=== PATIENT | female | born 1940 | race Caucasian/White ===

== ENCOUNTER → 2016-11-15 | Outpatient (CLI) | payer MEDICARE ==
[~2016-11-15] MED LIST: CELEXA20 MG PO; FEMARA2.5 MG PO; OMEPRAZOLE20 MG PO; QUINAPRIL20 MG PO; VITAMIN D2000 IU PO
[2016-11-15 10:26] LABS: BASO % 0.3 % (0.0-1.0); EOS % 0.3 % (1.0-4.0); HEMATOCRIT 38.4 % (37.0-47.0); HEMOGLOBIN 12.3 g/dl (12.0-16.0); IG # 0.1 10*3/uL (0.0-0.1); LYMPH # 2.2 10*3/uL (1.3-4.4); LYMPH % 36.4 % (27.0-41.0); MEAN CELL VOLUME 90.4 fl (81.0-99.0); MEAN CORPUSCULAR HGB 28.9 pg (27.0-31.0); MONO # 0.5 10*3/uL (0.1-1.0); NEUT # 3.2 10*3/uL (2.3-7.9); NEUT % 54.2 % (47.0-73.0); PLATELET COUNT AUTOMATED 182 10*3/uL (130-400); RED BLOOD COUNT 4.25 10*6/uL (4.10-5.10); RED CELL DISTRI WIDTH 14.8 % (0-14.5)
[2016-11-15 10:59] LABS: IRON 65 ug/dL (50-170); IRON SATURATION 21 %; UIBC 234 ug/dL (110-365)
[2016-11-15 11:24] LABS: FERRITIN 146.5 ng/mL (10.0-291.0); FOLIC ACID 9.98 ng/mL (>5.38)
== END | disposition home or self-care (01) ==
LOC: LAB 10:01
PROVIDERS: Internal Medicine
DX: D64.9 Anemia, unspecified (principal)

== ENCOUNTER → 2017-01-23 | Outpatient (CLI) | payer MEDICARE, OTHER | END | disposition home or self-care (01) | LOC: MAMMO 01-18 10:30 | DX: C50.919 Malignant neoplasm of unspecified site of unspecified female breast (principal); R92.8 Other abnormal and inconclusive findings on diagnostic imaging of breast ==

== ENCOUNTER → 2018-09-06 | Outpatient (CLI) | payer MEDICARE, OTHER ==
[~2018-09-06] MED LIST changes: +ASPIRIN81 M1 PO; +GOOD SENSE ACID20 MG PO; +VITAMIN B121000 MC1 PO
== END | disposition home or self-care (01) ==
LOC: MAMMO 08:34
DX: N64.4 Mastodynia (principal); Z85.3 Personal history of malignant neoplasm of breast

== ENCOUNTER 2020-10-19 12:20 | Emergency (ER) | payer MEDICARE ==
[~2020-10-19] VITALS: Ht 152.4 cm; Wt 88.5 kg
[2020-10-19 13:26] LABS: BASO % 0.6 % (0.0-1.0); EOS # 0.1 10*3/uL (0.0-0.4); EOS % 2.8 % (1.0-4.0); HEMATOCRIT 39.5 % (37.0-47.0); LYMPH # 1.8 10*3/uL (1.3-4.4); LYMPH % 34.9 % (27.0-41.0); MEAN CELL VOLUME 87.8 fl (81.0-99.0); MEAN CORPUSCULAR HGB CONC 31.9 g/dl (33.0-37.0); MEAN PLATELET VOLUME 10.2 fl (9.6-12.3); MONO # 0.5 10*3/uL (0.1-1.0); MONO % 9.9 % (3.0-9.0); NEUT # 2.6 10*3/uL (2.3-7.9); NEUT % 51.6 % (47.0-73.0); PLATELET COUNT AUTOMATED 178 10*3/uL (130-400); RED CELL DISTRI WIDTH 13.2 % (0-14.5)
[2020-10-19 13:44] LABS: ALBUMIN 3.5 gm/dl (3.1-4.5); ALKALINE PHOSPHATASE 74 U/L (45-117); BUN 16 mg/dl (7-24); CHLORIDE 111 mmol/L (98-107); CREATININE 1.16 mg/dL (0.55-1.02); LIPASE 155 U/L (73-393); SGOT/AST 40 IU/L (3-35); SGPT/ALT 37 U/L (12-78); SODIUM 140 mmol/L (136-145); TOTAL PROTEIN 7.7 gm/dL (6.4-8.2)
[2020-10-19 13:46] LABS: TROPONIN I < 0.015 ng/ml (<0.045)
[2020-10-19 13:50] LABS: FREE T4 0.99 ng/dl (0.76-1.46)
== END 2020-10-19 16:27 | disposition home or self-care (01) ==
LOC: ED 12:20
PROVIDERS: Physician Assistant
DX: R53.1 Weakness (principal); R25.1 Tremor, unspecified; R42 Dizziness and giddiness; R53.83 Other fatigue; I10 Essential (primary) hypertension; E78.5 Hyperlipidemia, unspecified; Z85.3 Personal history of malignant neoplasm of breast; Z88.2 Allergy status to sulfonamides; Z79.899 Other long term (current) drug therapy; Z79.82 Long term (current) use of aspirin; Z98.51 Tubal ligation status; Z85.828 Personal history of other malignant neoplasm of skin

== ENCOUNTER 2022-08-24 14:39 | Emergency (ER) | payer MEDICARE ==
[~2022-08-24] VITALS: Wt 89.8 kg
[2022-08-24 17:44] LABS: BASO % 0.4 % (0.0-1.0); EOS # 0.2 10*3/uL (0.0-0.4); EOS % 3.2 % (1.0-4.0); LYMPH # 1.8 10*3/uL (1.3-4.4); LYMPH % 34.2 % (27.0-41.0); MEAN CELL VOLUME 88.5 fl (81.0-99.0); MEAN CORPUSCULAR HGB 27.7 pg (27.0-31.0); MEAN CORPUSCULAR HGB CONC 31.3 g/dl (33.0-37.0); MEAN PLATELET VOLUME 10.2 fl (9.6-12.3); MONO # 0.3 10*3/uL (0.1-1.0); MONO % 6.2 % (3.0-9.0); NEUT # 2.9 10*3/uL (2.3-7.9); NEUT % 55.4 % (47.0-73.0); PLATELET COUNT AUTOMATED 193 10*3/uL (130-400); RED BLOOD COUNT 4.52 10*6/uL (4.10-5.10); RED CELL DISTRI WIDTH 13.3 % (0-14.5); WHITE BLOOD COUNT 5.3 10*3/uL (4.8-10.8)
[2022-08-24 18:06] LABS: POTASSIUM 4.4 mmol/L (3.4-5.1); TOTAL PROTEIN 7.3 gm/dL (6.0-8.0)
[2022-08-24 18:46] LABS: ACT PARTIAL THROMBO TIME 28.2 SECONDS (20.0-32.1)
[2022-08-24] MEDS ORDERED: MECLIZINE HCL25 M2 PO (21:16)
== END 2022-08-24 21:32 | disposition home or self-care (01) ==
LOC: ED 14:39
PROVIDERS: Emergency Medicine; Physician Assistant
DX: H81.10 Benign paroxysmal vertigo, unspecified ear (principal); K21.9 Gastro-esophageal reflux disease without esophagitis; I10 Essential (primary) hypertension; I48.91 Unspecified atrial fibrillation; E78.5 Hyperlipidemia, unspecified; Z90.12 Acquired absence of left breast and nipple; Z98.49 Cataract extraction status, unspecified eye; Z88.2 Allergy status to sulfonamides; Z98.51 Tubal ligation status

== ENCOUNTER 2023-01-15 08:16 | Emergency (ER) | payer MEDICARE ==
[~2023-01-15] VITALS: Ht 152.4 cm; Wt 86.2 kg
[~2023-01-15 08:16] MED LIST changes: +MECLIZINE HCL25 M2 PO
[2023-01-15] MEDS ORDERED: TRAMADOL HCL50 MG PO (08:37)
[2023-01-15] MEDS ORDERED: WALKER (09:36)
== END 2023-01-15 09:41 | disposition home or self-care (01) ==
LOC: ED 08:16
DX: M25.561 Pain in right knee (principal); K21.9 Gastro-esophageal reflux disease without esophagitis; I10 Essential (primary) hypertension; M19.90 Unspecified osteoarthritis, unspecified site; E78.5 Hyperlipidemia, unspecified; Z88.2 Allergy status to sulfonamides; Z98.51 Tubal ligation status; Z90.12 Acquired absence of left breast and nipple; Z98.890 Other specified postprocedural states; Z98.49 Cataract extraction status, unspecified eye

== ENCOUNTER 2023-05-31 13:25 | Emergency (ER) | payer MEDICARE, OTHER ==
[~2023-05-31] VITALS: Ht 162.5 cm; Wt 821.0 kg
[~2023-05-31 13:25] MED LIST changes: +ENALAPRIL20 MG PO; +NEURONTIN100 MG PO; +OMEPRAZOLE40 MG PO; +TOPROL XL25 MG PO; +TRAMADOL HCL50 MG PO; +WALKER
[2023-05-31 14:18] LABS: BASO % 0.4 % (0.0-1.0); EOS # 0.1 10*3/uL (0.0-0.4); EOS % 2.2 % (1.0-4.0); HEMATOCRIT 37.9 % (37.0-47.0); LYMPH # 1.7 10*3/uL (1.3-4.4); LYMPH % 37.7 % (27.0-41.0); MEAN CELL VOLUME 88.8 fl (81.0-99.0); MEAN CORPUSCULAR HGB 27.6 pg (27.0-31.0); MEAN CORPUSCULAR HGB CONC 31.1 g/dl (33.0-37.0); MEAN PLATELET VOLUME 9.9 fl (9.6-12.3); MONO # 0.4 10*3/uL (0.1-1.0); MONO % 8.1 % (3.0-9.0); NEUT # 2.4 10*3/uL (2.3-7.9); NEUT % 51.4 % (47.0-73.0); PLATELET COUNT AUTOMATED 152 10*3/uL (130-400); RED BLOOD COUNT 4.27 10*6/uL (4.10-5.10); RED CELL DISTRI WIDTH 14.4 % (0-14.5); WHITE BLOOD COUNT 4.6 10*3/uL (4.8-10.8)
[2023-05-31 14:41] LABS: ALKALINE PHOSPHATASE 64 U/L (46-116); BUN 11 mg/dl (9-23); CHLORIDE 109 mmol/L (98-107); POTASSIUM 3.6 mmol/L (3.4-5.1); SGPT/ALT 21 U/L (5-49); TOTAL PROTEIN 6.9 gm/dL (6.0-8.0)
[2023-05-31 15:34] LABS: BILIRUBIN Negative (Negative); BLOOD Negative (Negative); CLARITY Clear (Clear); COLOR Yellow (Yellow); GLUCOSE Negative (Negative); KETONE Negative (Negative); LEUKO ESTERASE Negative (Negative); NITRITE Negative (Negative); PH 5.5 (4.5-8.0); SPECIFIC GRAVITY 1.015 (1.001-1.030); UROBILINOGEN 0.2 E.U./dl (0.0-1.0)
[2023-05-31 15:44] LABS: WBC 0-2 wbc/hpf (0-5)
== END 2023-05-31 16:46 | disposition home or self-care (01) ==
LOC: ED 13:25
PROVIDERS: Physician Assistant Medical
DX: I49.8 Other specified cardiac arrhythmias (principal); R00.2 Palpitations; I10 Essential (primary) hypertension; F32.A Depression, unspecified; K21.9 Gastro-esophageal reflux disease without esophagitis; M19.90 Unspecified osteoarthritis, unspecified site; E78.5 Hyperlipidemia, unspecified; Z88.2 Allergy status to sulfonamides; Z98.890 Other specified postprocedural states; Z90.12 Acquired absence of left breast and nipple; Z98.51 Tubal ligation status

== ENCOUNTER → 2023-11-21 | Outpatient (CLI) | payer MEDICARE, OTHER ==
[2023-11-23 15:11] LABS: STRIATIONAL ANTIBODIES Negative (Neg:<1:100)
== END ==
LOC: LAB 10:58
PROVIDERS: ATTEND Psychiatry & Neurology Neurology
DX: H53.2 Diplopia (principal)

== ENCOUNTER → 2024-05-20 | Outpatient (CLI) | payer MEDICARE, OTHER ==
[2024-05-20 17:07] LABS: BASO % 0.4 % (0.0-1.0); EOS # 0.2 10*3/uL (0.0-0.4); EOS % 2.8 % (1.0-4.0); HEMATOCRIT 39.2 % (37.0-47.0); MEAN CELL VOLUME 90.5 fl (81.0-99.0); MEAN CORPUSCULAR HGB 28.9 pg (27.0-31.0); MEAN CORPUSCULAR HGB CONC 31.9 g/dl (33.0-37.0); MEAN PLATELET VOLUME 9.8 fl (9.6-12.3); MONO # 0.6 10*3/uL (0.1-1.0); MONO % 8.3 % (3.0-9.0); NEUT # 3.1 10*3/uL (2.3-7.9); NEUT % 45.8 % (47.0-73.0); PLATELET COUNT AUTOMATED 187 10*3/uL (130-400); RED BLOOD COUNT 4.33 10*6/uL (4.10-5.10); RED CELL DISTRI WIDTH 13.7 % (0-14.5); WHITE BLOOD COUNT 6.8 10*3/uL (4.8-10.8)
[2024-05-20 17:40] LABS: POTASSIUM 3.7 mmol/L (3.4-5.1); TOTAL PROTEIN 7.2 gm/dL (6.0-8.0)
== END | disposition home or self-care (01) ==
LOC: LAB 16:50
PROVIDERS: ATTEND Nurse Practitioner
DX: R63.4 Abnormal weight loss (principal); R11.0 Nausea; K59.00 Constipation, unspecified; F12.90 Cannabis use, unspecified, uncomplicated

== ENCOUNTER 2024-07-02 08:31 | Inpatient (IN) | payer MEDICARE, OTHER ==
[~2024-07-02] VITALS: Ht 152.4 cm; Wt 83.6 kg
[2024-07-02] MEDS ORDERED: Acetaminophen/Oxycodone 5 MG/325 MG TABLET PO ONE (08:35)
[2024-07-02 08:41] VITALS: BP 162/91
[2024-07-02] MEDS ORDERED: PANTOPRAZOLE SO40 MG PO (08:59)
[2024-07-02] MEDS ORDERED: ELIQUIS5 M1 PO (08:59)
[2024-07-02] MEDS ORDERED: ALLOPURINOL100 MG PO (09:00)
[2024-07-02] MEDS ORDERED: LOSARTAN POTASS25 M1 PO (09:00)
[2024-07-02] MEDS ORDERED: METOPROLOL SUCC50 M1 PO (09:01)
[2024-07-02] MEDS ORDERED: Acetaminophen/Hydrocodone 5 MG/325 MG TABLET PO PRN (11:00)
[2024-07-02] MEDS ORDERED: BISACODYL 10 MG SUPP R PRN (11:00)
[2024-07-02] MEDS ORDERED: BISACODYL 5 MG TAB PO PRN (11:00)
[2024-07-02] MEDS ORDERED: ACETAMINOPHEN 325 MG TAB PO PRN (11:00)
[2024-07-02] MEDS ORDERED: Magnesium Hydroxide 30 ML UDC PO PRN (11:00)
[2024-07-02] MEDS ORDERED: Ondansetron Hydrochloride 4 MG/2 ML VIAL IV PRN (11:00)
[2024-07-02] MEDS ORDERED: MORPHINE Sulfate 2 MG/ML SYR IV PRN (11:00)
[2024-07-02] MEDS ORDERED: TEMAZEPAM 15 MG CAP PO PRN (11:00)
[2024-07-02] MEDS ORDERED: ACETAMINOPHEN 650 MG SUPP R PRN (11:00)
[2024-07-02 11:32] VITALS: BP 148/62
[2024-07-02 11:59] LABS: BASO % 0.1 % (0.0-1.0); EOS % 0.3 % (1.0-4.0); HEMATOCRIT 37.6 % (37.0-47.0); MEAN CELL VOLUME 89.5 fl (81.0-99.0); MEAN CORPUSCULAR HGB 28.8 pg (27.0-31.0); MEAN CORPUSCULAR HGB CONC 32.2 g/dl (33.0-37.0); MEAN PLATELET VOLUME 10.6 fl (9.6-12.3); MONO # 0.9 10*3/uL (0.1-1.0); MONO % 11.6 % (3.0-9.0); NEUT # 5.4 10*3/uL (2.3-7.9); NEUT % 67.6 % (47.0-73.0); PLATELET COUNT AUTOMATED 146 10*3/uL (130-400); RED CELL DISTRI WIDTH 13.2 % (0-14.5)
[2024-07-02 12:09] LABS: ACT PARTIAL THROMBO TIME 35.5 SECONDS (20.0-32.1)
[2024-07-02 12:30] VITALS: BP 131/58
[2024-07-02 12:34] LABS: FREE T4 1.27 ng/dl (0.89-1.76); POTASSIUM 3.8 mmol/L (3.4-5.1); TOTAL PROTEIN 6.9 gm/dL (6.0-8.0)
[2024-07-02 13:10] LABS: VITAMIN D, 25-HYDROXY 31.3 ng/mL (30-100)
[2024-07-02 16:00] VITALS: BP 141/53
[2024-07-02] MEDS ORDERED: APIXABAN 5 MG TAB PO SCH (18:00)
[2024-07-02 20:00] VITALS: BP 131/61
[2024-07-03] VITALS: BP 105/65
[2024-07-03] MEDS ORDERED: Pantoprazole Sodium 40 MG TAB PO SCH (06:00)
[2024-07-03 08:00] VITALS: BP 134/71
[2024-07-03] MEDS ORDERED: Enoxaparin Sodium 30 MG/0.3 ML SYR SC SCH (10:00)
[2024-07-03] MEDS ORDERED: METOPROLOL SUCCINATE XR 50 MG TAB PO SCH (10:00)
[2024-07-03] MEDS ORDERED: ALLOPURINOL 100 MG TAB PO SCH (10:00)
[2024-07-03] MEDS ORDERED: Losartan Potassium 25 MG TAB PO SCH (10:00)
[2024-07-03] MEDS ORDERED: HYDROCODONE-AC1 EAC1 PO (11:07)
[2024-07-03 12:00] VITALS: BP 106/54
== END 2024-07-03 14:45 | disposition home or self-care (01) | DRG 556 ==
LOC: ED 08:31 → 4E 10:51 → EDHOLD 10:51 → 4E 11:14
PROVIDERS: Student in an Organized Health Care Education/Training Program; ADMIT Internal Medicine; ATTEND Internal Medicine
DX: M25.562 Pain in left knee (principal); F33.9 Major depressive disorder, recurrent, unspecified; M25.552 Pain in left hip; R26.2 Difficulty in walking, not elsewhere classified; E66.9 Obesity, unspecified; H81.13 Benign paroxysmal vertigo, bilateral; Z66 Do not resuscitate; R73.9 Hyperglycemia, unspecified; E80.6 Other disorders of bilirubin metabolism; I10 Essential (primary) hypertension; M54.50 Low back pain, unspecified; G89.29 Other chronic pain; K21.9 Gastro-esophageal reflux disease without esophagitis; I48.91 Unspecified atrial fibrillation; Z98.42 Cataract extraction status, left eye; Z98.41 Cataract extraction status, right eye; Z85.3 Personal history of malignant neoplasm of breast; Z82.3 Family history of stroke; Z82.49 Family history of ischemic heart disease and other diseases of the circulatory system; Z88.2 Allergy status to sulfonamides; Z79.899 Other long term (current) drug therapy; Z68.36 Body mass index [BMI] 36.0-36.9, adult